=== PATIENT | male | born 1965 | race African-American/Black ===

== ENCOUNTER 2020-03-24 09:49 | Outpatient (CLI) | payer OTHER, SELFPAY ==
[2020-03-24 10:40] LABS: Basophils Percent Auto 0.6 % (0.2-1.2); Eosinophils Absolute Auto 0.1 K/mm3 (0-0.3); Eosinophils Percent Auto 1.9 % (0-4.4); Hematocrit 45.6 % (42.0-52.0); Immature Granulocyte Absolute 0.01 K/mm3 (0.00-0.031); Immature Granulocyte Percent A 0.2 % (0-0.5); Lymphocytes Absolute Auto 2.46 K/mm3 (0.9-3.2); Lymphocytes Percent Auto 39.5 % (18.3-44.2); Mean Corpuscular HGB Conc 32.9 g/dl (32-36); Mean Corpuscular Hemoglobin 27.1 pg (26-34); Mean Corpuscular Volume 82.3 fl (80-100); Mean Platelet Volume 12.2 fl (7.4-10.4); Monocytes Absolute Auto 0.4 K/mm3 (0.1-0.6); Monocytes Percent Auto 6.6 % (2.6-8.5); Neutrophils Absolute Auto 3.2 K/mm3 (1.3-6.7); Neutrophils Percent Auto 51.2 % (45.5-73.1); Platelet Count Result 190 k/mm3 (150-375); Red Blood Count 5.54 M/mm3 (4.6-6.20); Red Cell Distribution Width 11.7 % (11.5-14.5); White Blood Count 6.2 K/mm3 (4.5-10.0)
[2020-03-24 10:53] LABS: Potassium 4.2 mmol/L (3.4-5.0)
[2020-03-24 11:04] LABS: LDL Cholesterol Direct 182 mg/dL
[2020-03-24 11:06] LABS: Alanine Aminotransferase 46 U/L (4-50); Albumin Level 4.4 g/dL (3.5-5.1); Alkaline Phosphatase 56 U/L (38-126); Anion Gap 8 mmol/L (8-16); Aspartate Amino Transferase 34 U/L (17-59); Bilirubin,Total 1.4 mg/dL (0.2-1.3); Blood Urea Nitrogen 14 mg/dL (9-20); CRP < 0.5 mg/dL (<1.0); Calcium 9.2 mg/dL (8.4-10.2); Carbon Dioxide 27 mmol/L (22-30); Chloride 104 mmol/L (98-107); Cholesterol 247 mg/dL (0-200); Estimated Glomerular Filt Rate > 60; Glucose 104 mg/dL (75-110); HDL Direct 35 mg/dL; Sodium 139 mmol/L (137-145); Triglycerides 156 mg/dL (<150)
[2020-03-24 11:08] LABS: Erythrocyte Sedimentation Rate 4 mm/hr (0-20)
== END 2020-03-24 09:50 | disposition home or self-care (01) ==
PROVIDERS: PCP Family Medicine; Visit Provider Physician Assistant
DX: Z00.01 Encounter for general adult medical examination with abnormal findings (principal); R21 Rash and other nonspecific skin eruption; Z13.220 Encounter for screening for lipoid disorders
CPT/HCPCS: 36415; 80053; 80061; 85025; 85652; 86140

== ENCOUNTER 2022-02-04 08:49 | Outpatient (CLI) | payer OTHER, SELFPAY ==
[2022-02-04 09:33] LABS: Basophils Percent Auto 0.5 % (0.2-1.2); Eosinophils Absolute Auto 0.2 K/mm3 (0-0.3); Eosinophils Percent Auto 3.1 % (0-4.4); Hematocrit 47.5 % (42.0-52.0); Hemoglobin 15.2 g/dL (14.0-18.0); Immature Granulocyte Absolute 0.02 K/mm3 (0.00-0.031); Immature Granulocyte Percent A 0.3 % (0-0.5); Lymphocytes Absolute Auto 2.16 K/mm3 (0.9-3.2); Lymphocytes Percent Auto 37.1 % (18.3-44.2); Mean Corpuscular Hemoglobin 27.6 pg (26-34); Mean Corpuscular Volume 86.2 fl (80-100); Mean Platelet Volume 12.3 fl (7.4-10.4); Monocytes Absolute Auto 0.4 K/mm3 (0.1-0.6); Monocytes Percent Auto 6.2 % (2.6-8.5); Neutrophils Absolute Auto 3.1 K/mm3 (1.3-6.7); Neutrophils Percent Auto 52.8 % (45.5-73.1); Platelet Count Result 164 k/mm3 (150-375); Red Blood Count 5.51 M/mm3 (4.6-6.20); Red Cell Distribution Width 12.4 % (11.5-14.5); White Blood Count 5.8 K/mm3 (4.5-10.0)
[2022-02-04 09:50] LABS: Alanine Aminotransferase 54 U/L (6-50); Albumin Level 4.1 g/dL (3.5-5.1); Alkaline Phosphatase 59 U/L (38-126); Anion Gap 9 mmol/L (8-16); Aspartate Amino Transferase 37 U/L (17-59); Bilirubin,Total 1.6 mg/dL (0.2-1.3); Blood Urea Nitrogen 13 mg/dL (9-20); Calcium 8.9 mg/dL (8.4-10.2); Carbon Dioxide 23 mmol/L (22-30); Chloride 105 mmol/L (98-107); Cholesterol 238 mg/dL (0-200); Estimated Glomerular Filt Rate > 60; Glucose 108 mg/dL (65-110); HDL Direct 38 mg/dL; Potassium 4.2 mmol/L (3.4-5.0); Sodium 137 mmol/L (137-145); Triglycerides 136 mg/dL (<150)
[2022-02-04 09:52] LABS: Uric Acid 8.5 mg/dL (3.5-8.5)
[2022-02-04 09:54] LABS: Rheumatoid Factor < 8.6 IU/ML (<12)
[2022-02-04 09:58] LABS: Erythrocyte Sedimentation Rate 1 mm/hr (0-20)
[2022-02-04 10:00] LABS: LDL Cholesterol Direct 169 mg/dL
[2022-02-07 22:13] LABS: PSA, Free 0.19 ng/mL; PSA, Total 0.4 ng/mL (<=4.0)
== END 2022-02-04 08:50 | disposition home or self-care (01) ==
LOC: ANHLAB 08:51
PROVIDERS: Nurse Practitioner Gerontology; Physician Assistant; PCP Family Medicine; Visit Provider Family Medicine
DX: Z12.5 Encounter for screening for malignant neoplasm of prostate (principal); M25.50 Pain in unspecified joint; I10 Essential (primary) hypertension; Z00.01 Encounter for general adult medical examination with abnormal findings
CPT/HCPCS: 36415; 80053; 80061; 84153; 84154; 84550; 85025; 85652; 86038; 86430

== ENCOUNTER 2023-06-23 09:22 | Outpatient (CLI) | payer OTHER, SELFPAY ==
[2023-06-23 09:36] LABS: Basophils Percent Auto 0.5 % (0.2-1.2); Eosinophils Absolute Auto 0.1 K/mm3 (0-0.3); Eosinophils Percent Auto 1.8 % (0-4.4); Hematocrit 51.8 % (42.0-52.0); Hemoglobin 16.6 g/dL (14.0-18.0); Immature Granulocyte Absolute 0.01 K/mm3 (0.00-0.031); Immature Granulocyte Percent A 0.2 % (0-0.5); Lymphocytes Absolute Auto 2.69 K/mm3 (0.9-3.2); Lymphocytes Percent Auto 43.7 % (18.3-44.2); Mean Corpuscular Hemoglobin 27.3 pg (26-34); Mean Corpuscular Volume 85.3 fl (80-100); Mean Platelet Volume 11.6 fl (7.4-10.4); Monocytes Absolute Auto 0.4 K/mm3 (0.1-0.6); Monocytes Percent Auto 6.3 % (2.6-8.5); Neutrophils Absolute Auto 2.9 K/mm3 (1.3-6.7); Neutrophils Percent Auto 47.5 % (45.5-73.1); Platelet Count Result 198 k/mm3 (150-375); Red Blood Count 6.07 M/mm3 (4.6-6.20); Red Cell Distribution Width 12.2 % (11.5-14.5); White Blood Count 6.2 K/mm3 (4.5-10.0)
[2023-06-23 09:46] LABS: Alanine Aminotransferase 50 U/L (6-50); Albumin Level 4.3 g/dL (3.5-5.1); Alkaline Phosphatase 60 U/L (38-126); Anion Gap 9 mmol/L (8-16); Aspartate Amino Transferase 32 U/L (17-59); Bilirubin,Total 1.7 mg/dL (0.2-1.3); Blood Urea Nitrogen 19 mg/dL (9-20); Calcium 9.4 mg/dL (8.4-10.2); Carbon Dioxide 27 mmol/L (22-30); Chloride 104 mmol/L (98-107); Cholesterol 255 mg/dL (0-200); Estimated Glomerular Filt Rate > 60; Glucose 118 mg/dL (65-110); HDL Direct 46 mg/dL; Sodium 140 mmol/L (137-145); Triglycerides 200 mg/dL (<150); Uric Acid 8.6 mg/dL (3.5-8.5)
[2023-06-23 09:57] LABS: LDL Cholesterol Direct 160 mg/dL
== END 2023-06-23 09:23 | disposition home or self-care (01) ==
LOC: ANHLAB 09:23
PROVIDERS: PCP Family Medicine; Visit Provider Family Medicine
DX: I10 Essential (primary) hypertension (principal); E78.2 Mixed hyperlipidemia; E79.0 Hyperuricemia without signs of inflammatory arthritis and tophaceous disease
CPT/HCPCS: 36415; 80053; 80061; 84550; 85025

== ENCOUNTER 2024-07-26 08:57 | Outpatient (CLI) | payer OTHER, SELFPAY ==
--- OUTSIDE RECORDS SUMMARY | 2024-07-26 09:01 | XMS_ITS | Clinical Summary ---
Author Organization [facility] Address [address] [place] [address] Care Team Providers Care Certified Ethical Hacker Name Role Phone Unavailable Primary Care Provider Unavailabl e Social History Tobacco Use Types Packs/Day Years Used Date Smoking Tobacco: Never Assessed Sex and Gender Information Value Date Recorded Sex Assigned at Not on file Legal Sex Male 10:27 AM CDT Gender Identity Not on file Sexual Orientation Not on file Plan of Treatment Health Maintenance Due Date Last Done Comments DTAP/TDAP/TD VACCINES (1 - Tdap) 1984 HEPATITIS B VACCINES (1 of 3 - 19+ 3-dose series) 1984 COLORECTAL SCREENING 2010 Colorectal Cancer Screening 2010 FIT-DNA Q 3 years 2010 FIT/FOBT Q 1 year 2010 Flex Sig/CT Colonography Q 5 years 2010 ZOSTER VACCINE (1 of 2) 11/04/2015 INFLUENZA VACCINE (#1) 2023 03/09/2021 PNEUMOCOCCAL VACCINE 0-49 YEARS Aged Out No longer eligible based on patient's age to complete this topic Insurance [employer]
--- OUTSIDE RECORDS SUMMARY | 2024-07-26 09:01 | XMS_ITS | Continuity of Care Document ---
Author Name [facility] Organization [facility] Care Team Providers Care Senior Manager Creative Services Name Role Phone [facility] Unavailable Unavailable Problems Combined list of problems from Department of [facility] and [facility] facilities. It does not include entries that were removed or entered in error. 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 Medication Details Route Status Patient Instructions Prescription Expires Prescription Number Last Dispense Date Ordering Provider Order Date Order Qty Source CARBOXYMETH YLCELLULOSE NA 1% GEL,OPH INSTILL 1 DROP INTO BOTH EYES TWICE A DAY OPHTHA LMIC ACTIVE 08/20/2024 [id number] CONNOR NIETO 2023 30 [facility] Immunizations Combined list of available immunizations from the [facility] and [facility] facilities. Immunization Series Date Given Administered By Site Reaction Lot Number CVX Code Drug Linen Clerk Status Comments Source COVID-19 ([email or web address]), MRNA, LNP-S, PF, 30 MCG/0.3 ML DOSE 3 2020 208 complet ed PFR; [id number]; 1 [facility] INFLUENZA, INJECTABLE, QUADRIVALENT, PRESERVATIVE FREE 2020 150 complet ed [facility] COVID-19 ([email or web address]), MRNA, LNP-S, PF, 30 MCG/0.3 ML DOSE 2 2020 208 complet ed PFR; [id number]; 1 [facility] COVID-19 (P[employer]ZER), MRNA, LNP-S, PF, 30 MCG/0.3 ML DOSE 1 2020 208 complet ed PFR; [id number]; 1 [facility] INFLUENZA, UNSPECIFIED FORMULATION 2002 88 complet ed [facility] Encounters Combined list of: 1) Encounters from [facility] facilities going backup to the last 18 months, not all [place] inpatient encounters are included; 2) 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 Location Location Details Encounter Type Encounter Number Reason For Visit Attending Provider ADM Date DC Date Status Disposition Source [facility] OPH EXAM NEW PATIENT [id number] Diagnos is: ICD-10- CM H11.153 Pinhyun hopkins MY- CHAU THI 05/22 [facility] OFFICE O/P EST LOW 20 MIN [id number] Diagnos is: ICD-10- CM H04.123 Dry eye syndrom e of hyun pierce lacrima l glands Skip NIETO 08/19 [facility] Outpatient Encounter [id number] 11/06 [facility] Outpatient Encounter [id number] 05/13 [facility]
--- OUTSIDE RECORDS SUMMARY | 2024-07-26 09:01 | XMS_ITS | Encounter Summary ---
Author Name [facility] Address [address] [place] [address] Support Name Relationship Address Phone VITALYAugust Next of Kin [address] [place] [address] Unavailable [employer] Emergency Contact [address] [place] [address] Insurance Providers: All historical and current Section Date Range: From patient's date of to the date document was created. This section includes the names of all active insurance providers for the patient. Insurance Provider Type of Coverage Plan Name Start of Policy Coverage End of Policy Coverage Group Number Member ID Insurance Provider's Telephone Number Policy Jimenez's Name Patient's Relationship to Policy Jimenez [facility] (WNR) [facility] CE ORGANIZAT ION TRICA RE REPLA CEME Sep 02, [address] [place] [id number] [phone] Catrina HAIDER PATIENT [facility] 2024 [facility] May 14, 2024 [facility] [id number] [phone] RAJ HAIDER JR PATIENT Selected Encounter This section includes the information on record at [place] for the Encounter. Date/Time Encounter Type Encounter Description Reason Provider Source Aug 20, 2023 02:00 PM OFFICE O/P EST LOW 20 MIN OPTOMETRY ICD-10-CM H04.123 Dry eye syndrome of bilateral lacrimal glands CONNOR NIETO [facility] Encounter Template Text not used by [facility] Assessments - Encounter Diagnoses This section includes the primary and secondary diagnoses documented for the Encounter. Date/Time Primary/Secondary Diagnosis Diagnosis Name Provider Source Aug 20, 2023 02:41 PM PRIMARY Dry eye syndrome of bilateral lacrimal glands CHIVETTA,CONNOR FELICIANO [facility] Aug 20, 2023 02:41 PM SECONDARY Pinguecula, bilateral CONNOR NIETO [facility] Aug 20, 2023 02:41 PM SECONDARY Presbyopia CONNOR NIETO [facility] Encounter Notes: All associated encounter notes This section contains the clinical notes associated to the Encounter. Date/Time Encounter Note(s) Provider Source Aug 20, 2023 02:07 PM OPTOMETRY NOTE: LOCAL TITLE: OPTOMETRY NOTE STANDARD TITLE: OPTOMETRY NOTE DATE OF NOTE: AUG 20, 2023@14:07 ENTRY DATE: AUG 20, 2023@14:07:14 AUTHOR: CONNOR NIETO EXP COSIGNER: URGENCY: STATUS: COMPLETED Last seen 05/22/2023 Reason for visit: DFE completion CC: 1. 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 Pinguecula, OU 2. Refractive Error with Presbyopia, OU Family OcHX: (-) blindness (-) glaucoma (-) AMD (-) RD Cardiovascular ROS: no change from problem & medication lists CPRS Problem list, medications and allergies reviewed: CPRS Serology for Diabetes No GLUCOSE EO data found No HEMOGLOBIN A1C EO data found Cardiovascular BP: Pulse: Neuro: Orientation: Normal Psych: Mood/Affect: Normal Depression/suicide ideation: NO VISUAL ACUITY With correction Distance Visual Acuity OD 20/20 OS 20/20 Pupils PERRL OU (-)APD Confrontation: FTFC OU Extra-Ocular Muscles Full OU (-)pain (-)diplopia Externals/adnexa: Unremarkable OU Refraction 05/22/2023 OD: +0.50 -1.75 x103 20/20 OS: +0.50 -1.25 x077 20/20 Add: +2.00 Single vision near OD: +2.50 -1.75 x103 OS: +2.50 -1.25 x077 SLIT LAMP EXAMINATION Lids/Lashes/Lacrimal No blepharitis OU Conjunctiva/Sclera tr diffuse injection/quiet OU OD: patchy melanosis inf/saul OS: scattered melanosis Nasal pinguecula OU Cornea Clear OU, Arcus OU Ant Chamber Deep and quiet OU Iris Normal, (-)NVI OU Lens tr-1 NS, 2+ ACC greatest temp OU Intraocular Pressures (Goldmann) 1 gtt fluress Date OD OS Time 08/20/23 20 20 1415 RETINAL EVALUATION 1 phenyleph 2.5%, 1 trop 1% OU DFE Dilated retinal exam Optic Nerve OD: 0.35 CDR Flat, pink, distinct (-)NVD OS: 0.40 CDR Flat, pink, distinct (-)NVD OU: larger by contour Vessels: 2/3 OU Macula: OD: Flat, intact (-)CSME, +FLR OS: Flat, intact (-)CSME, +FLR Posterior Pole: OD: (-)hemes (-)CWS (-)NVE OS: (-)hemes (-)CWS (-)NVE Periphery: OD: (-)holes, tears, RDs 360 OS: (-)holes, tears, RDs 360 Vitreous: No PVD OU Assessment/Plan 08/20/23 1.MEHRAN/Pinguecula, OU with tr injection OU today, pt mildly symptomatic Start refresh ATs BID - rx to be mailed ed on UV sunprotection Monitor yearly or sooner PRN 2. Cataracts OU not yet visually significant Defer cataract extraction until signs/sx indicate 3. Refractive error/Presbyopia stable BCVA [facility] previous nonadapt to BF continue NVO/DVO Ed. pt on all findings RTC 1-2 years prn, pt to direct schedule /es/ CONNOR NIETO, OD Staff Physician, Optometry Signed: 08/20/2023 14:41 CONNOR NIETO [facility]
[2024-07-26 09:19] LABS: Basophils Percent Auto 0.5 % (0.2-1.2); Eosinophils Absolute Auto 0.2 K/mm3 (0-0.3); Eosinophils Percent Auto 2.7 % (0-4.4); Hematocrit 48.7 % (42.0-52.0); Hemoglobin 15.5 g/dL (14.0-18.0); Immature Granulocyte Absolute 0.01 K/mm3 (0.00-0.031); Immature Granulocyte Percent A 0.2 % (0-0.5); Lymphocytes Absolute Auto 2.65 K/mm3 (0.9-3.2); Lymphocytes Percent Auto 48.3 % (18.3-44.2); Mean Corpuscular HGB Conc 31.8 g/dl (32-36); Mean Corpuscular Hemoglobin 27.3 pg (26-34); Mean Corpuscular Volume 85.9 fl (80-100); Mean Platelet Volume 11.9 fl (7.4-10.4); Monocytes Absolute Auto 0.3 K/mm3 (0.1-0.6); Neutrophils Absolute Auto 2.3 K/mm3 (1.3-6.7); Neutrophils Percent Auto 42.3 % (45.5-73.1); Platelet Count Result 144 k/mm3 (150-375); Red Blood Count 5.67 M/mm3 (4.6-6.20); Red Cell Distribution Width 12.2 % (11.5-14.5); White Blood Count 5.5 K/mm3 (4.5-10.0)
[2024-07-26 09:35] LABS: Alanine Aminotransferase 41 U/L (6-50); Albumin Level 4.2 g/dL (3.5-5.1); Alkaline Phosphatase 56 U/L (38-126); Anion Gap 9 mmol/L (4-12); Aspartate Amino Transferase 28 U/L (17-59); Bilirubin,Total 1.6 mg/dL (0.2-1.3); Blood Urea Nitrogen 12 mg/dL (9-20); Calcium 8.9 mg/dL (8.4-10.2); Carbon Dioxide 25 mmol/L (22-30); Chloride 105 mmol/L (98-107); Cholesterol 249 mg/dL (0-200); Estimated Glomerular Filt Rate > 60; Glucose 101 mg/dL (65-110); HDL Direct 39 mg/dL; Potassium 4.2 mmol/L (3.4-5.0); Sodium 139 mmol/L (137-145); Triglycerides 159 mg/dL (<150); Uric Acid 8.1 mg/dL (3.5-8.5)
[2024-07-26 09:46] LABS: LDL Cholesterol Direct 165 mg/dL
[2024-07-26 10:04] LABS: Prostate Specific Antigen 0.5 ng/mL (< OR = 4.0)
== END 2024-07-26 08:58 | disposition home or self-care (01) ==
LOC: ANHLAB 08:59
PROVIDERS: PCP Family Medicine; Visit Provider Physician Assistant
DX: Z12.5 Encounter for screening for malignant neoplasm of prostate (principal); E78.2 Mixed hyperlipidemia; I10 Essential (primary) hypertension
CPT/HCPCS: 36415; 80053; 80061; 84153; 84550; 85025; G0103